=== PATIENT | female | born 1990 | race Two or more races ===

== ENCOUNTER 2025-01-13 09:26 | Emergency (ER) | payer MEDICAID, SELFPAY ==
[2025-01-13 09:27] VITALS: BMI 25.0
[2025-01-13 09:31] VITALS: BP 126/85; PULSE 70; RESP 18; TEMP 36.7; O2SAT 100
--- NOTE | 2025-01-13 09:40 | XR_ITS ---
EXAMINATION: Ankle, right 3 views . Technique: Ankle AP, oblique, lateral 3 views Date and time of exam: January 13, 2025 0954 hours INDICATIONS: Injury to the ankle 4 weeks ago, ankle pain FINDINGS: No fracture or dislocation No foreign body IMPRESSION: No fracture or dislocation
--- NOTE | 2025-01-13 09:40 | XR_ITS ---
Examination: Foot, right, 3 views Technique: AP, oblique, lateral views foot, 3 views Date and time of exam: January 13, 2025 0954 hours INDICATIONS: Injury to the foot 4 weeks ago, foot pain FINDINGS: Moderate osteopenia Subtle radiolucency involving the lateral margin of the cuboid No dislocation IMPRESSION: Consider CT scan foot without contrast follow-up to exclude nondisplaced fracture of the cuboid
--- NOTE | 2025-01-13 09:40 | EDNOTE_ITS ---
<Statement entered by Chely Viveros MD - 01/24/25 01:02> As co-signing physician, I was present and available for consult prn. I concur with the plan and care as documented by the midlevel provider. Lower Extremity Injury RME/HPI General Chief Complaint: Ankle/Foot Injury Stated Complaint: RIGHT FOOT PAIN/SWELLING S/P FALL 12/19 Time Seen by Provider: 01/13/25 09:30 Arrival date/time: 01/13/25 09:26 34-year-old female presents emergency dept today for complaints of right foot pain and swelling patient where she had an injury 12/19 there are no other associated symptoms or aggravating factors no other modifying factors, patient denies taking medication before coming to ER today Limitations: no limitations Related Data Previous Rx's ?Medication ?Instructions ?Recorded ibuprofen 600 mg tablet 600 mg PO Q6H #30 tabs 01/13 Allergies Allergy/AdvReac Type Severity Reaction Status Date / Time No Known Allergies Allergy Verified 01/13/25 09:28 Review of Systems Review of Systems Systems Reviewed: All systems reviewed, normal except as documented Constitutional Constitutional: Reports system reviewed and no additional complaints, except as documented, Denies fever(s) and Denies headache(s) Eyes Eyes: Reports system reviewed and no additional complaints, except as documented and Denies blurry vision ENT Ears, Nose, Mouth, and Throat: Reports system reviewed and no additional complaints, except as documented, Denies headache(s), Denies nasal congestion and Denies nasal discharge Cardiovascular Cardiovascular: Reports system reviewed and no additional complaints, except as documented, Denies chest pain and Denies dyspnea Respiratory Respiratory: Reports system reviewed and no additional complaints, except as documented, Denies chest congestion, Denies cough and Denies dyspnea Gastrointestinal Gastrointestinal: Reports system reviewed and no additional complaints, except as documented and Denies abdominal pain Musculoskeletal Musculoskeletal: Reports system reviewed and no additional complaints, except as documented, Reports arthralgias, Denies deformity, Denies numbness, Reports stiffness and Denies tingling Integumentary/Breasts Skin/Breast: Reports system reviewed and no additional complaints, except as documented and Denies rash Neurologic Neurologic: Reports system reviewed and no additional complaints, except as documented, Reports as per HPI, Denies headache(s), Denies numbness and Denies tingling Past Medical History Social History SMOKING STATUS: Never smoker ED Exam General Limitations: Present no limitations General appearance: Present alert and in no apparent distress Head Head exam: Present atraumatic Eye Eye exam: Present normal appearance, PERRL and EOMI ENT ENT exam: Present normal exam, normal oropharynx and mucous membranes moist Neck Neck exam: Present normal inspection, full ROM and trachea midline Chest Chest inspection: Present normal inspection and symmetric chest wall rise Respiratory Respiratory exam: Present normal lung sounds bilaterally Cardiovascular Cardiovascular exam: Present regular rate, normal rhythm and normal heart sounds Abdominal Exam Abdominal exam: Present soft and normal bowel sounds Extremities Exam Extremities exam: Present full ROM, tenderness, normal capillary refill and joint swelling; Absent pedal edema or calf tenderness Back Exam Back exam: Present normal inspection and full ROM Neurological Exam Neurological exam: Present alert, oriented X3 and CN II-XII intact Psychiatric Psychiatric exam: Present normal affect and normal mood Skin Skin exam: Present warm, dry, intact and normal color Course Quality Measures none Orders Category Date Time Status Crutches .NOW Care 01/13/25 10:14 Completed Splint / Immobilizer STAT Care 01/13/25 10:14 Completed XR ankle comp RT min 3V Stat Exams 01/13/25 09:40 Completed XR foot comp RT min 3V Stat Exams 01/13/25 09:40 Completed Vital Signs Vital signs: Vital Signs Temperature 98.1 F 01/13/25 09:31 Pulse Rate 70 01/13/25 09:31 Respiratory Rate 18 01/13/25 09:31 Blood Pressure 126/85 H 01/13/25 09:31 Pulse Oximetry (%) 100 01/13/25 09:31 Oxygen Delivery Method Room Air 01/13/25 09:31 O2 saturation 100% r.a wnl Procedures -ED Splint Fabrication: Clinician Made Type: Posterior Leg Reason for Splint: Improve Function, Optimal Positioning and Pain Management Circulation Distal to Splint: Yes Movement Distal to Splint: Yes Senation Distal to Splint: Yes Tolerance: Tolerates Well Extremity Injury, Lower MDM Narrative MDM Narrative:: 34-year-old female presents emergency dept today for complaints of right foot pain and swelling patient where she had an injury 12/19 there are no other associated symptoms or aggravating factors no other modifying factors, patient denies taking medication before coming to ER today On exam patient well-appearing patient is not appear toxic in no acute distress Exam patient is mild swelling dorsal aspect of the right foot X-ray of the right foot obtained patient has what appears to be a subacute fracture right cuboid patient placed in a splint and crutches Patient instructed to remain nonweightbearing Patient discharged home in no distress to follow-up with primary care doctor in the next 24 to 48 hours and for any worsening symptoms to return to the ER immediately Patient data External records reviewed:: [facility] previous records Clinical information provided by:: patient Social determinants that could affect healthcare access:: none Patient has the following chronic illnesses:: none How is presenting disease/condition affected by chronic disease/condition?: no chronic disease Evaluation data The following diagnostics were reviewed and interpreted by me:: radiology exam(s) Lab and/or radiology exams considered but not ordered:: Radiology obtain Interpretation Summary: By me Medications / Prescriptions Medications or Prescriptions considered but not ordered:: Given Medication administrations:: Given Consultations Consultation(s) initiated? (list below): No Diagnosis Extremity Injury, Lower Differential Diagnosis: ankle sprain and strain and ankle fracture Most likely diagnosis given after review of the tests above:: Sprain Admission Indicated Admission indicated?: not indicated Admission Request Was there a request for admission?: No Disposition Plan Disposition Plan: Discharge Discharge Attestation Discharge Attestation: The patient and all family members were given an opportunity to ask questions and understood the discharge instructions. Discharge instructions specifically effects, indications for sooner follow up or return to the emergency department, and the expected course of current diagnosis. Patient condition: Stable Discharge Plan Plan Patient Disposition: HOME (Self Care) Discharge Disposition comment: Stable Prescriptions/Referrals Prescriptions/Med Rec: New ibuprofen 600 mg tablet 600 mg PO Q6H Qty: 30 0RF Problem List Clinical Impression: Fracture of cuboid bone, closed Patient/Caregiver Discharge Instructions Education Materials: ED Fracture, Foot Additional Instructions: Please follow up with your primary care doctor in the next 24-48hrs for any worsening symptoms return here immediately Please wear splint use crutches and follow-up with PCP for referral to ortho pedist Print Language: Maltese Stand Alone Forms: Carrie Award Info., Patient Portal Info Letter PA/[employer] Supervising Physician PA/VIJAY Supervising Physician: dr viveros
== END 2025-01-13 10:57 | disposition home or self-care (01) ==
LOC: SERX 10:41
PROVIDERS: Emergency Provider Emergency Medicine
DX: S92.214A Nondisplaced fracture of cuboid bone of right foot, initial encounter for closed fracture (principal); S99.911A Unspecified injury of right ankle, initial encounter; W19.XXXA Unspecified fall, initial encounter
CPT/HCPCS: 29515; 73610; 73630; 99283